=== PATIENT | female | born 1980 | race Caucasian/White ===

== ENCOUNTER 2016-10-11 15:19 | Outpatient (CLI) | payer OTHER ==
[~2016-10-11] VITALS: Ht 175.3 cm; Wt 105.1 kg
[~2016-10-11 15:19] MED LIST: CEPH-443 PO; FOL8 PO; PREN1TAB17 PO
[2016-10-11 15:50] VITALS: Ht 175.3 cm; Wt 105.1 kg
--- NOTE | 2016-12-20 12:56 | QN ---
Documentation Comment 24 weeks chief complaint over sporting patient underwent ultrasound evaluation normal findings discharged home with instructions LASHONDA CAT MD Dec 20, 2016 12:56
== END 2016-10-11 16:10 | disposition home or self-care (01) ==
LOC: OBT 15:19 → L-D 15:21 → OBT 16:10
PROVIDERS: ATTEND Obstetrics & Gynecology
DX: O26.852 Spotting complicating pregnancy, second trimester (principal); Z3A.24 24 weeks gestation of pregnancy
CPT/HCPCS: G0463

== ENCOUNTER 2016-12-17 14:27 | Outpatient (CLI) | payer OTHER ==
[~2016-12-17] VITALS: Ht 175.3 cm; Wt 109.3 kg
[~2016-12-17 14:27] MED LIST changes: -CEPH-443 PO
[2016-12-17] MEDS ORDERED: DEXTROSE 5%-LR 1,000 ML IV SCH (15:00)
[2016-12-17] MEDS ORDERED: LOPERAMIDE 2 MG CAP PO PRN (15:00)
[2016-12-17] MEDS ORDERED: OMEP20TA55 PO (15:02)
[2016-12-17 15:05] VITALS: BP 126/59; PULSE 86; RESP 18
--- NOTE | 2017-01-25 16:57 | QN ---
Documentation Comment Third trimester UTI symptoms LASHONDA CAT MD January 25, 2017 16:56
--- NOTE | 2017-02-08 19:14 | QN ---
Documentation Comment cc diarrhea RX Imodium LASHONDA CAT MD February 08, 2017 19:14
== END 2016-12-17 16:41 | disposition home or self-care (01) ==
LOC: OBT 14:27 → L-D 15:15 → OBT 16:41
PROVIDERS: ATTEND Obstetrics & Gynecology
DX: O26.893 Other specified pregnancy related conditions, third trimester (principal); R19.7 Diarrhea, unspecified; O09.523 Supervision of elderly multigravida, third trimester; Z3A.00 Weeks of gestation of pregnancy not specified
CPT/HCPCS: Z7500; Z7610; G0463

== ENCOUNTER 2017-02-02 10:20 | Outpatient (CLI) | payer OTHER ==
[~2017-02-02] VITALS: Ht 175.3 cm; Wt 110.5 kg
[~2017-02-02 10:20] MED LIST changes: -FOL8 PO; +OMEP20TA55 PO
[2017-02-02 10:30] VITALS: Ht 175.3 cm; Wt 110.5 kg
[2017-02-02 10:33] VITALS: BP 117/68; PULSE 71
--- NOTE | 2017-02-02 11:07 | RADRPT ---
PROCEDURE: US OB. CLINICAL INDICATION: Size and dates TECHNIQUE: Multiple sonographic images of the pelvis and gravid uterus were obtained. The images were reviewed on a PACS workstation. COMPARISON: No prior studies are available for comparison. FINDINGS: There is a single viable intrauterine gestation. Cardiac activity is present with 123 beats per min magnus. There is a vertex presentation. The placenta is anterior. There is no evidence for an abruption or placenta previa. Measurements were made in order to determine age. The results are as follows: BPD =9.0 cm HC =32.5 cm AC =34.1 cm FL =7.4 cm Estimated gestational age of approximately 37 weeks and 2 days based on ultrasound measurements. Clinical age: 40 weeks and 2 days. The estimated date of delivery is 02/21/2017, based on ultrasound measurements. The EFW = 3275 g, 19.9%, based on LMP age. RPTAT: AA IMPRESSION: Single viable intrauterine gestation of approximately 37 weeks and 2 days based on ultrasound measu rements. Smaller than clinical age by 3 weeks. .Brian Louie MD, MD Date Time Electronically viewed and signed by .Brian Louie MD, on 02/02/2017 11:07 .S/
--- NOTE | 2017-02-02 11:15 | RADRPT ---
PROCEDURE: US OB biophysical profile. CLINICAL INDICATION: decreased movements, post dates TECHNIQUE: Multiple sonographic images of the pelvis were obtained. The images were reviewed on a PACS workstation. COMPARISON: No prior studies are available for comparison. FINDINGS: There is a single viable intrauterine gestation. Cardiac activity is present with 134 beats per min magnus. There is a vertex presentation. The placenta is anterior. There is no evidence of placental abruption. There is a normal amount of amniotic fluid with an KIERAN = 9.7 cm. Biophysical profile: movement 2/2 tone 2/2. breathing 2/2 KIERAN 2/2 Total 05/03 RPTAT: AA . IMPRESSION: Normal biophysical profile. . .Brian Louie MD, Date Time Electronically viewed and signed by .Brian Louie MD, MD on 02/02/2017 11:14 .S/
--- NOTE | 2017-02-02 12:17 | QN ---
Documentation Comment 40 weeks 2 days had biophysical profile 8 /8 cervix 1 cm 20% effaced vertex at -2 station labor instructions kick counts patient has appointment with the clinic in 2 days LASHONDA CAT MD February 02, 2017 12:17
--- NOTE | 2017-02-02 12:36 | TRIAGE ---
OB Triage Datetime Report Generated by CPN: 02/02/2017 12:36 Datetime: 02/02/2017 11:39 Vaginal Exam Dilatation (cms): 1.0 Effacement (%): 20 Station: -2 Exam By: LR RN Datetime: 02/02/2017 11:25 Maternal Assessment Level of Consciousness: Fully Conscious Headache: Denies Nausea/Vomiting: Denies RUQ Epigastric Pain: Denies Labor Evaluation Frequency: 0 Monitor Mode: External Resting Tone [place]: Relaxed Monitor Mode: External US FHR Baseline Changes: No Baseline Change Variability: Moderate 6-25 bpm Accelerations: 15X15 Decelerations: None Category: Category I Pain Presence: None/Denies Pain Type: N/A Datetime: 02/02/2017 10:44 Maternal Assessment Level of Consciousness: Fully Conscious DTR's/Clonus: DTRs 2+ Headache: Denies Blurred Vision: No Nausea/Vomiting: Denies RUQ Epigastric Pain: Denies Facial Edema: None Labor Evaluation Frequency: 5 Monitor Mode: External Duration (sec)2399: 60-80 Quality: Mild Resting Tone [place]: Relaxed Monitor Mode: External US FHR Baseline Changes: No Baseline Change Variability: Moderate 6-25 bpm Accelerations: 10X10 Decelerations: None Category: Category I Pain Presence: None/Denies Pain Type: N/A Datetime: 02/02/2017 10:15 Time of Arrival: 02/02/2017 10:15 EGA: 40.2 Arrived By: Ambulatory Arrived From: Home Chief Complaint: PT SEND FOR NST/BPP/EFW FOR POST DATES Movement: Present Contractions: Denies/Absent Rupture of Membranes: Denies Vaginal Bleeding: None Vaginal Discharge: Denies Abdominal Trauma: Not Applicable Patient Complaints: None Time Provider Notified: 02/02/2017 11:25 Provider Notified: STEPHANIA Initial Plan: ABOVE Datetime: 12/17/2016 16:19 Labor Evaluation Frequency: 0 Monitor Mode: External Pattern: Normal: <= 5 Contractions in 10 Minutes Resting Tone [place]: Relaxed Comments: NOT ON STRIP DUE TO MOVEMENT AND MATERNAL MOVEMENT Datetime: 12/17/2016 15:10 Labor Evaluation Frequency: 0 Monitor Mode: External Pattern: Normal: <= 5 Contractions in 10 Minutes Resting Tone [place]: Relaxed Heart Rate FHR Baseline Rate: 125 Monitor Mode: External US FHR Baseline Changes: No Baseline Change Variability: Moderate 6-25 bpm Accelerations: 15X15 Decelerations: None Datetime: 12/17/2016 14:39 Time of Arrival: 12/17/2016 14:14 EGA: 33.4 Arrived By: Wheelchair Chief Complaint: DIARRHEA AFTER LUNCH, CHILLS Movement: Present Contractions: Occasional Rupture of Membranes: Denies Vaginal Bleeding: None Patient Complaints: Contractions; Cramping; Back Pain; Other Additional Patient Complaints: "ABDOMEN FEELS HARD" Time Provider Notified: 12/17/2016 14:56 Provider Notified: DR. CAT Initial Plan: EFM x2, IV HYDRATION, IMMODIUM AD (Annotations: Data stored by N on behalf of user ) Datetime: 12/17/2016 14:38 Labor Evaluation Frequency: 0 Monitor Mode: External Pattern: Normal: <= 5 Contractions in 10 Minutes Resting Tone [place]: Relaxed Contraction Comments: ON MONITOR FROM 1428, NOT RECORDED ON COMPUTER Heart Rate FHR Baseline Rate: 125 Monitor Mode: External US FHR Baseline Changes: No Baseline Change Variability: Moderate 6-25 bpm Accelerations: None Decelerations: None Comments: ON MONITOR FROM 1428, NOT RECORDED BY COMPUTER. Datetime: 12/17/2016 14:31 Stage of : OB Triage Assessment Type: Triage Maternal Assessment Level of Consciousness: Fully Conscious Headache: Denies Blurred Vision: No Respiratory Effort: Unlabored; Regular Rhythm; Equal Expansion Breath Sounds, Left: Clear and Equal Breath Sounds, Right: Clear and Equal Nausea/Vomiting: Denies RUQ Epigastric Pain: Denies Lower Extremities Edema: None Degree: None Upper Extremities Edema: None Degree: None Facial Edema: None Temperature Route: Oral Fall Risk Assessment History of Falling: (0) No Secondary Diagnosis: (0) No Ambulatory Aid: (0) Bedrest/Nurse Assist IV Therapy: (0) No Gait: (0) Normal/Bedrest/Immobile Mental Status: (0) Oriented to Own Ability Fall Score: 0 Fall Risk Score Definition: No Risk: No action required Pain Assessment Pain Scale: 0 Pain Presence: None/Denies Pain Type: N/A Datetime: 10/11/2016 15:45 Stage of : OB Triage Assessment Type: Triage EGA: 24.0 Maternal Assessment Level of Consciousness: Fully Conscious DTR's/Clonus: DTRs 2+; No Clonus Headache: Denies Blurred Vision: No Respiratory Effort: Unlabored; Regular Rhythm; Equal Expansion Breath Sounds, Left: Clear and Equal Breath Sounds, Right: Clear and Equal Nausea/Vomiting: Denies RUQ Epigastric Pain: Denies Lower Extremities Edema: None Degree: None Upper Extremities Edema: None Degree: None Facial Edema: None Temperature Route: Axillary Fall Risk Assessment History of Falling: (0) No Secondary Diagnosis: (0) No Ambulatory Aid: (0) Bedrest/Nurse Assist IV Therapy: (0) No Gait: (0) Normal/Bedrest/Immobile Mental Status: (0) Oriented to Own Ability Fall Score: 0 Fall Risk Score Definition: No Risk: No action required Labor Evaluation Frequency: 0 Monitor Mode: External Pattern: Normal: <= 5 Contractions in 10 Minutes Resting Tone [place]: Relaxed Heart Rate FHR Baseline Rate: 125 Monitor Mode: External US Variability: Moderate 6-25 bpm Decelerations: None Category: Category I Pain Assessment Pain Scale: 3 Pain Presence: Intermittent Pain Type: Cramping Pain Location: Abdomen (Annotations: LEFT SIDE) Pain Goal: 3 Pain Relief Measures: Comfort Measures Datetime: 10/11/2016 15:43 Time of Arrival: 10/11/2016 15:10 Arrived By: Ambulatory Arrived From: Home Chief Complaint: C/O INTERMITTENT BACK PAIN, CRAMPING, BROWN DISCHARGE. DENIES LEAKING, Movement: Present Contractions: Denies/Absent Rupture of Membranes: Denies Vaginal Discharge: Present Recent Sexual Intercouse: Denies Abdominal Trauma: Not Applicable Time Provider Notified: 10/11/2016 15:55 Provider Notified: STEPHANIA Initial Plan: MONITOR, VE
== END 2017-02-02 12:20 | disposition home or self-care (01) ==
LOC: L-D 10:20 → OBT 10:20
PROVIDERS: ATTEND Obstetrics & Gynecology
DX: O48.0 Post-term pregnancy (principal); O36.8130 Decreased fetal movements, third trimester, not applicable or unspecified; O09.523 Supervision of elderly multigravida, third trimester; Z3A.40 40 weeks gestation of pregnancy
CPT/HCPCS: 76815; 76818

== ENCOUNTER 2017-02-05 01:00 | Inpatient (IN) | payer OTHER ==
[~2017-02-05] VITALS: Ht 174 cm; Wt 110.0 kg
[~2017-02-05 01:00] MED LIST changes: +FOL8 PO
[2017-02-05 01:30] VITALS: BP 128/71; PULSE 90; RESP 18; Ht 174 cm; Wt 110.0 kg
--- NOTE | 2017-02-05 01:57 | HP ---
Date/Time of Note Date/Time of Note DATE: 02/05/17 TIME: 01:56 OB - History Hx of Present Free Text/Dictation @40+wks GA : 7 Para: 5 Care: Good Care Obstetrical Complications: None Medical Complications: None Past Family/Social History * Past Medical, Surgical, Family and Obstetric Histories reviewed from chart. OB Admission Exam Vital Signs Vital Signs Vital Signs Date Time Temp Pulse Resp B/P Pulse Ox O2 Delivery O2 Flow Rate FiO2 02/05/17 01:30 98.1 90 18 128/71 Room Air Physical Exam Abdomen: WNL Extremities: Normal Cervical Dilatation: 2cm Effacement: 75% Station: -1 Membranes: Intact Heart Rate: 140's Accelerations: Accelerations Present Decelerations: No Decelerations Contractions on Admission: 6-10 Minutes Apart OB Assessment/Plan Reason for admission: observation Induction Method: per Pitocin Protocol Other plan: Anticipated DEMETRIUS HILL M.D. February 05, 2017 01:57
[2017-02-05] MEDS ORDERED: MISOPROSTOL 200 MCG TAB PR PRN ×2 (02:00→08:30)
[2017-02-05] MEDS ORDERED: BUTORPHANOL 2 MG INJ IV PRN (02:00)
[2017-02-05] MEDS ORDERED: LIDOCAINE 1% (MPF) 30 ML INJ INJ PRN (02:00)
[2017-02-05] MEDS ORDERED: ACETAMINOPHEN/CODEINE #3 TAB PO PRN (02:00)
[2017-02-05] MEDS ORDERED: OXYTOCIN 30 UNITS/LR 500 ML IV SCH ×2 (02:00)
[2017-02-05] MEDS ORDERED: AMPICILLIN 2 GM/NS (PMX) 100 ML IV ONE (02:00)
[2017-02-05] MEDS ORDERED: METHYLERGONOVINE 0.2 MG INJ IM PRN ×2 (02:00→08:30)
[2017-02-05] MEDS ORDERED: CARBOPROST 250 MCG INJ IM PRN ×2 (02:00→08:30)
[2017-02-05] MEDS ORDERED: OXYTOCIN 30 UNITS/LR 500 ML IV PRN ×2 (02:00→08:30)
[2017-02-05] MEDS ORDERED: IBUPROFEN 600 MG TAB PO PRN (02:00)
[2017-02-05] MEDS ORDERED: LACTATED RINGER'S 1,000 ML IV PRN (03:00)
[2017-02-05] MEDS: LACTATED RINGER'S 1,000 ML IV SCH ×2 (03:22→04:56)
[2017-02-05 03:40] LABS: ADD SCAN DIFF NO
[2017-02-05 03:47] LABS: BASOPHILS % 0.2 % (0.0-2.0); EOSINOPHILS % 0.3 % (0.0-7.0); HEMATOCRIT 33.4 % (37.0-47.0); HEMOGLOBIN 10.7 g/dl (12.0-16.0); LYMPHOCYTES # 1.3 10^3/ul (0.8-2.9); LYMPHOCYTES % 12.7 % (15.0-51.0); MEAN CORPUSCULAR HEMOGLOBIN 27.2 pg (29.0-33.0); MEAN PLATELET VOLUME 11.4 fl (7.4-10.4); MONOCYTE # 0.6 10^3/ul (0.3-0.9); MONOCYTES % 5.5 % (0.0-11.0); NEUTROPHIL # 8.5 10^3/ul (1.6-7.5); NEUTROPHILS % 80.6 % (39.0-77.0); PLATELET COUNT 203 10^3/UL (140-415); RED BLOOD COUNT 3.93 10^6/ul (4.20-5.40); RED CELL DISTRIBUTION WIDTH 14.6 % (11.5-14.5); WHITE BLOOD COUNT 10.6 10^3/ul (4.8-10.8)
[2017-02-05 04:03] LABS: INR 1.04; PROTIME 13.6 Sec (12.2-14.2); PT RATIO 1.1
[2017-02-05] MEDS ORDERED: FENTAnyl 2MCG/ML-ROPIV 0.2% 100 ML ONE (04:29)
[2017-02-05] MEDS ORDERED: NALOXONE (0.4 MG/ML) INJ IV PRN (05:00)
[2017-02-05] MEDS ORDERED: ONDANSETRON 4 MG INJ IV PRN (05:00)
[2017-02-05] MEDS ORDERED: FENTAnyl 2MCG/ML-ROPIV 0.2% 100 ML BAG EPI SCH (05:00)
[2017-02-05] MEDS ORDERED: EPHEDrine SULFATE 50 MG/5 ML SYG IV PRN (05:00)
[2017-02-05] MEDS ORDERED: AMPICILLIN 1 GM/NS (PMX) 50 ML IV SCH (06:00)
[2017-02-05] MEDS: OXYTOCIN 30 UNITS/LR 500 ML IV SCH ×2 (06:00→06:02)
--- NOTE | 2017-02-05 06:06 | LDN ---
Date/Time of Note Date/Time of Note DATE: 02/05/17 TIME: 06:05 Delivery Summary Placenta Delivered: Spontaneously Meconium: none Episiotomy: No Anesthesia type: None Estimated blood loss: 200 Sponge & Needle done & correct: Yes All needle counts correct: Yes Any foreign bodies felt in the: No Problems: Infant Delivery Information Sex Infant Sex: female Apgars 1 Minute: 9 5 Minute: 9 Suctioning Nose & mouth suctioned at serge: Yes Delee suction performed: Yes Umbilical Cord Umbilical cord with: 3 Vessels Cord presentations: no nuchal cord Cord Blood was obtained: Yes Mother & Baby Disposition Disposition Mom & Baby to Maternity; Good: Yes Baby to NICU: No DEMETRIUS HILL M.D. February 05, 2017 06:06
[2017-02-05 07:07] LABS: BARBITURATES NEGATIVE (NEGATIVE); BENZODIAZEPINES NEGATIVE (NEGATIVE)
[2017-02-05 07:08] LABS: CANNABINOIDS NEGATIVE (NEGATIVE); OPIATES NEGATIVE (NEGATIVE)
[2017-02-05 08:15] VITALS: BP 116/67; PULSE 68; RESP 18
[2017-02-05] MEDS: LACTATED RINGER'S 1,000 ML IV* SCH ×2 (08:24→17:40)
[2017-02-05] MEDS ORDERED: OXYCODONE/ASPIRIN (4.88/325) TAB PO PRN (08:30)
[2017-02-05] MEDS ORDERED: ZOLPIDEM 5 MG TAB PO PRN (08:30)
[2017-02-05] MEDS ORDERED: BENZOCAINE 20% 56 ML SPRAY TOP PRN (08:30)
[2017-02-05] MEDS ORDERED: WITCH HAZEL/GLYCERIN PAD PR PRN (08:30)
[2017-02-05] MEDS ORDERED: SENNA/DOCUSATE NA (8.6MG/50MG) TAB PO PRN (08:30)
[2017-02-05 09:14] LABS: COCAINE NEGATIVE (NEGATIVE)
[2017-02-05] MEDS: LANOLIN 7 GM TUBE TOP PRN (09:51)
[2017-02-05] MEDS: SENNA/DOCUSATE NA (8.6MG/50MG) TAB PO SCH ×2 (09:51→20:51)
[2017-02-05 11:20] VITALS: BP 106/60; PULSE 76; RESP 18
[2017-02-05] MEDS: IBUPROFEN 600 MG TAB PO SCH ×3 (11:38→23:30)
[2017-02-05 16:00] VITALS: BP 97/59; PULSE 69; RESP 18
[2017-02-05 19:55] VITALS: BP 109/62; PULSE 79; RESP 19
[2017-02-06] MEDS: LACTATED RINGER'S 1,000 ML IV* SCH ×3 (00:24→16:24)
[2017-02-06 03:50] VITALS: BP 108/57; PULSE 68; RESP 19
[2017-02-06] MEDS: IBUPROFEN 600 MG TAB PO SCH ×3 (05:37→18:09)
[2017-02-06 07:27] LABS: ADD SCAN DIFF NO
[2017-02-06 07:42] LABS: BASOPHILS % 0.3 % (0.0-2.0); EOSINOPHILS # 0.1 10^3/ul (0.0-0.5); EOSINOPHILS % 1.3 % (0.0-7.0); HEMATOCRIT 32.7 % (37.0-47.0); HEMOGLOBIN 10.3 g/dl (12.0-16.0); LYMPHOCYTES # 1.8 10^3/ul (0.8-2.9); LYMPHOCYTES % 25.4 % (15.0-51.0); MEAN CORPUSCULAR HEMOGLOBIN 27.2 pg (29.0-33.0); MEAN CORPUSCULAR HGB CONC 31.5 g/dl (32.0-37.0); MEAN CORPUSCULAR VOLUME 86.5 fl (82.0-101.0); MEAN PLATELET VOLUME 11.5 fl (7.4-10.4); MONOCYTE # 0.6 10^3/ul (0.3-0.9); NEUTROPHIL # 4.5 10^3/ul (1.6-7.5); NEUTROPHILS % 64.6 % (39.0-77.0); PLATELET COUNT 197 10^3/UL (140-415); RED BLOOD COUNT 3.78 10^6/ul (4.20-5.40); RED CELL DISTRIBUTION WIDTH 14.9 % (11.5-14.5)
[2017-02-06 08:00] VITALS: BP 133/56; PULSE 63; RESP 18
[2017-02-06] MEDS: SENNA/DOCUSATE NA (8.6MG/50MG) TAB PO SCH ×2 (09:20→21:15)
--- NOTE | 2017-02-06 10:18 | PD.PPDC ---
MEDICAID NURSE Discharge Instruction Condition Patient Condition: Good Diet Diet: Resume Regular Diet Activity/Restrictions Activity: Normal Activity May Shower Restrictions: No Exercising No Lifting No Driving No Sexual Activity Nothing in the Vagina No Knapp No Tampons, douche Follow-up Follow-up with Physician: 2, Week/Weeks Return to clinic for [facility] Instructions: Fever greater than 101 Chills Worsening abdominal pain Excessive Vaginal Bleeding More than 2 pads per hour Unable to tolerate diet LASHONDA CAT MD February 06, 2017 10:18
[2017-02-06 16:00] VITALS: BP 104/62; PULSE 71; RESP 18
[2017-02-06 19:50] VITALS: BP 123/69; PULSE 71; RESP 18
[2017-02-07] MEDS: LACTATED RINGER'S 1,000 ML IV* SCH ×3 (00:24→16:24)
[2017-02-07 03:55] VITALS: BP 104/58; PULSE 72; RESP 18
[2017-02-07] MEDS: IBUPROFEN 600 MG TAB PO SCH ×4 (06:16→17:51)
[2017-02-07 08:00] VITALS: BP 103/63; PULSE 62; RESP 17
[2017-02-07] MEDS: LANOLIN 7 GM TUBE TOP PRN (08:50)
[2017-02-07] MEDS: SENNA/DOCUSATE NA (8.6MG/50MG) TAB PO SCH (08:50)
[2017-02-07] MEDS ORDERED: DIPHTH/TET/ACEL PERTUSS (ADULT) 0.5 ML VIAL IM* ONE (09:00)
[2017-02-07 16:30] VITALS: BP 105/59; PULSE 77; RESP 17
--- NOTE | 2017-02-07 16:31 | DS ---
Date/Time of Note Date/Time of Note DATE: 02/07/17 TIME: 16:29 Discharge Summary Admission/Discharge Info Admit Date/Time February 05, 2017 at 02:16 Discharge Date/Time February 07, 2017 at 1625 Final Diagnosis Post normal vaginal delivery Patient Condition: Good Procedures Normal vaginal delivery Hx of Present Illness Term in labor Hospital Course Uneventful satisfactory Home Meds Reported Medications Omeprazole Magnesium (Prilosec OTC) 20 Mg Tablet.dr, 20 MG PO DAILY, TAB 12/17/16 Vit-Iron Fumarate-FA ( Tablet) 1 Each Tablet, 1 EACH PO D 06/10/13 Primary Care Provider MD STEPHANIA Connelly HORMOZ MD February 07, 2017 16:31
== END 2017-02-07 20:40 | disposition home or self-care (01) | DRG 775 ==
LOC: OBT 01:00 → L-D 01:00 → OBT 01:45 → L-D 02:16 → PP1 08:11
PROVIDERS: ADMIT Obstetrics & Gynecology; ATTEND Obstetrics & Gynecology
PROC: 10E0XZZ Delivery of Products of Conception, External Approach (ICD-10-PCS; principal; 2017-02-05)
DX: O48.0 Post-term pregnancy (principal); E66.01 Morbid (severe) obesity due to excess calories; Z3A.40 40 weeks gestation of pregnancy; O99.214 Obesity complicating childbirth; Z68.36 Body mass index [BMI] 36.0-36.9, adult; Z37.0 Single live birth
CPT/HCPCS: 62319; 80307; 85025; 85610; 85730; 86592; 86900; 86901; 87340; 90715; G0463; J0290; J2590; J3010; J7120